=== PATIENT | female | born 1995 | race Caucasian/White ===

== ENCOUNTER 2020-08-31 06:30 | Day surgery (SDC) | payer BC ==
[2020-08-30 10:38] VITALS: BMI 29.2
[2020-08-31] MEDS ORDERED: AFRIN NASAL MIST 15 ML BOT ONE ×2 (07:05→08:23)
[2020-08-31] MEDS ORDERED: Acetaminophen 500 MG TAB ONE (07:08)
[2020-08-31] MEDS ORDERED: Bacitracin Zinc Ointment 30 gm TUBE ONE (08:23)
[2020-08-31] MEDS ORDERED: XYLOCAINE 2%-EPI 1:100,000 20 ML VIAL ONE (08:23)
[2020-08-31] MEDS ORDERED: Fentanyl 250 MCG/5 ML VIAL ONE (08:27)
[2020-08-31] MEDS ORDERED: Morphine 4 MG/ML VIAL ONE (08:27)
[2020-08-31] MEDS ORDERED: Rocuronium Bromide 10 MG/ML (10ML VIAL) ONE (11:32)
[2020-08-31] MEDS ORDERED: PROPOFOL 200 MG/20 ML VIAL ONE (11:32)
[2020-08-31] MEDS ORDERED: Ondansetron PF 4 MG/2 ML Vial ONE (11:32)
[2020-08-31] MEDS ORDERED: Ketorolac Tromethamine 30 MG/ML VIAL ONE (11:32)
[2020-08-31] MEDS ORDERED: Lidocaine 1% PF 5 ML VIAL ONE (11:32)
[2020-08-31] MEDS ORDERED: Dexamethasone 20 MG/5 ML VIAL ONE (11:32)
--- NOTE | 2020-09-02 07:33 | OP ---
DATE OF PROCEDURE: 08/31/2020 PROCEDURES PERFORMED: 1. Tonsillectomy. 2. Septoplasty, submucosal resection of inferior turbinates, and reconstruction of nasal valves. PREOPERATIVE DIAGNOSES: 1. Recurrent tonsillitis. 2. Septal deviation, turbinate hypertrophy and nasal valve collapse. POSTOPERATIVE DIAGNOSES: 1. Recurrent tonsillitis and tonsillar hypertrophy. 2. Septal deviation, turbinate hypertrophy and nasal valve collapse. PERMIT: Procedures, benefits and risks including those of bleeding, infection, injury to anesthesia, allergic reaction, and recurrent oropharyngeal bleeding causing return to operating room and cautery were discussed with the patient and family, who expressed understanding of the information and consent form was signed and witnessed. The paper copy of the consent form is not available for review in the paper chart. INDICATIONS: 1. Patient presenting to the clinic with acute tonsillitis, requiring antibiotic as well as chronic tonsillitis and pain is well controlled. 2. Patient presenting to clinic with exam findings of septal deviation, turbinate hypertrophy and severe nasal valve collapse causing persistent nasal congestion and difficulty breathing, which was recalcitrant to medical management and is now brought to the operating room for operative treatment. ASSISTANTS: None. FINDINGS: Severe septal deviation with septal spurs, turbinate hypertrophy and nasal valve collapse. DESCRIPTION OF OPERATION: PROCEDURE #1: The patient was brought to the operating room, laid supine on the operating room table. Anesthesia was induced. A complete time-out was performed before commencement of the surgical procedure. The table was turned 90 degrees. The patient was suspended using a [place] mouth gag. A red rubber catheter was used to place in the nares and used to examine the nasopharynx. Attention was turned to the right tonsil. The tonsil was removed first by incising the anterior pillar and then dissecting from its inferior fossa of bridging vessels and fibers were cauterized with the Bovie on a setting of 15, so was removed anatomically in its entirety. Hemostasis was achieved using suction cautery. Attention was turned to the left tonsil. Left tonsil was removed in the identical manner. The nasopharynx was irrigated and suctioned. The stomach contents were suctioned. the patient was turned back to anesthesia PROCEDURE #2: At this point attention was turned to the nose and the septum was infiltrated with 1% lidocaine with 1:100,000 epinephrine and 6 Afrin-soaked cottonoids were placed in the bilateral nasal cavities, 3 on each side. The patient was then prepped and draped in a usual fashion. The nose was then evaluated endoscopically. The patient was seen to have a severe septal deviation and septal spurs. At this point, a left El incision was made followed by elevation of the mucoperichondrial flaps with a combination of a 15 blade, [place] elevator and the [place]. The cartilaginous aspect of the septum was incised anteriorly, taking care to leave at least a 1.5 cm margin from the anterior septal border. Incision was made along the cartilage and the contralateral mucoperichondrial flap was then elevated as well. At this point, the swivel knife was used to remove the deviated cartilaginous portion of the nasal septum and then evaluation of the bony septum was seen and showed deviation causing obstruction. Double-action scissors were used to cut both superiorly and inferiorly and Tc's were used to remove the deviated aspects of the septum. The nose was then carefully analyzed bilaterally and it was clear that there was no obstruction from deviation and the remaining cartilaginous portions of the septum that were straight were replaced and a quilting mattress suture was then used to replace the mucoperichondrial flaps together with 4-0 chromic suture on a Rian needle and the El incision was then closed in a running fashion with a 5-0 chromic suture. Next, attention was turned to the bilateral inferior turbinate reductions, which were then performed. Next, a stab incision was made along the anterior inferior head of each inferior turbinates followed by elevation with an elevator. An oscillating debrider was then placed in the pocket and used to remove the erectile tissue from inside the inferior turbinates on both sides thus reducing the size of the inferior turbinates bilaterally. After this was performed, both inferior turbinates were then lateralized and outfractured using a Senior elevator. At this point, attention was turned to the nasal valve reconstruction. Bilateral nasal valve stenosis and collapse were observed with the endoscope. The left nasal ala was stabilized with a double-prong skin hook and an implant was inserted into the left internal nasal wall at the level of the nasal vibrissae. An implant was then inserted deep to the cartilaginous structures of the nasal ala and the left nasal sidewall and seated superiorly laterally to the nasal bone edge to anchor the left nasal sidewall and prevent collapse. The implant was seated well and palpation of the nasal wall showed good position of the implant. Attention was then turned to the right side and the same procedure was performed. The right nasal ala was stabilized with a double-prong skin hook and an implant was inserted into the right internal nasal wall at the level of the nasal vibrissae. The implant was inserted deep to the cartilaginous structures of the nasal ala and the right nasal sidewall and seated superior lateral to the nasal bone edge to anchor the nasal sidewall and prevent collapse. The implant was seated well and palpation of the nasal wall showed good position of the implant. At this point, the nasal cavity and nose were evaluated with the endoscope and it was clear that there was no deviation or obstruction. Bilateral Cross splints were placed and held with a 2-0 silk suture on the anterior septum. The endoscopes were used to evaluate and showed that the Cross splints were in good place. The patient tolerated the procedure well without complications and the patient was turned back to Anesthesia for emergence. Job ID: [id number] [facility]
== END 2020-08-31 12:20 | disposition home or self-care (01) ==
LOC: SDC 06:30
PROVIDERS: ATTEND Student in an Organized Health Care Education/Training Program
PROC: 09TL0ZZ Resection of Nasal Turbinate, Open Approach (ICD-10-PCS; principal; 2020-08-31)
PROC: 09QK0ZZ Repair Nasal Mucosa and Soft Tissue, Open Approach (ICD-10-PCS; principal; 2020-08-31)
PROC: 09BM0ZZ Excision of Nasal Septum, Open Approach (ICD-10-PCS; principal; 2020-08-31)
PROC: 0CTPXZZ Resection of Tonsils, External Approach (ICD-10-PCS; principal; 2020-08-31)
DX: J03.91 Acute recurrent tonsillitis, unspecified (principal); J35.01 Chronic tonsillitis; J34.2 Deviated nasal septum; J34.3 Hypertrophy of nasal turbinates; J34.89 Other specified disorders of nose and nasal sinuses
CPT/HCPCS: 88304; J1100; J1885; J2270; J2405; J2704; J3010